=== PATIENT | female | born 1960 | race American Indian/Alaskan Native ===

== ENCOUNTER 2022-03-01 09:47 | Outpatient (CLI) | payer OTHER ==
--- NOTE | 2022-03-01 11:10 | XRay Report ---
Pelvis and left hip 2 views INDICATION: Left hip pain FINDINGS: Moderate degenerative change bilateral hips. No acute fracture dislocation. Joint space elizabeth rowing is seen bilaterally. Signer Name: Zack Echavarria MD Signed: 03/01/2022 11:06 AM Workstation Name: [id number]
== END 2022-03-01 09:48 | disposition home or self-care (01) ==
LOC: XRAY 09:47
PROVIDERS: ATTEND Internal Medicine
DX: M16.0 Bilateral primary osteoarthritis of hip (principal)